=== PATIENT | male | born 1990 | race African-American/Black ===

== ENCOUNTER 2016-09-20 14:53 | Inpatient (IN) | payer OTHER ==
[~2016-09-20] VITALS: Ht 185.4 cm; Wt 143.6 kg
[2016-09-20] MEDS ORDERED: LORAZEPAM 2 MG/ML 1 ML VIAL IV STA (15:15)
[2016-09-20] MEDS ORDERED: LORAZEPAM 1 MG TAB SL STA (15:39)
[2016-09-20] MEDS ORDERED: HALOPERIDOL 5 MG TAB PO STA ×2 (15:39→18:27)
[2016-09-20 15:51] LABS: BASO % 0.3 %; BASO ABS # 0.02 K/uL (0-0.2); COMPLETE YES; EOS % 1.3 %; IG% 0.4 %; LYMPH % 31.9 %; LYMPH ABS # 2.28 K/uL (1.2-3.4); MEAN CELL VOLUME 84.9 fL (80-100); MEAN CORPUSCULAR HEMOGLOBIN 29.6 pg (25-34); MEAN CORPUSCULAR HGB CONC 34.9 g/dl (32-36); MEAN PLATELET VOLUME 10.5 fL (7.4-10.4); MONO % 6.2 %; NEUT % 59.9 %; PLATELET COUNT 250 K/uL (130-400); WHITE BLOOD COUNT 7.14 K/uL (4.8-10.8)
[2016-09-20 16:08] LABS: INR 1.1 (0.9-1.1); PARTIAL THROMBOPLASTIN RATIO 1.2; PROTHROMBIN TIME (PATIENT) 11.4 SECONDS (9.0-12.0)
[2016-09-20 16:17] LABS: ALT/SGPT 39 U/L (12-78); BLOOD UREA NITROGEN 13 mg/dl (7-18); BUN/CREATININE RATIO 10.8 (10-20); CALCIUM 9.3 mg/dl (8.5-10.1); CARBON DIOXIDE 27 mmol/L (21-32); CHLORIDE 108 mmol/L (98-107); GLUCOSE 96 mg/dl (70-99); POTASSIUM 4.1 mmol/L (3.5-5.1); SODIUM 145 mmol/L (136-145)
[2016-09-20 16:21] LABS: BENZODIAZEPINE, URINE NEG (NEG); COCAINE,URINE POS (NEG); PHENCYCLIDINE, URINE NEG (NEG)
[2016-09-20] MEDS ORDERED: LORA-741 PO (16:22)
[2016-09-20 16:28] LABS: ALKALINE PHOSPHATASE 81 U/L (45-117); AST/SGOT 41 U/L (15-37)
[2016-09-20 16:29] LABS: ACETAMINOPHEN < 2 ug/ml (10-30)
[2016-09-20] MEDS ORDERED: NICOTINE 14 MG/24 HR TDSY TD STA (16:51)
[2016-09-20 17:20] LABS: URINE APPEARANCE CLEAR (CLEAR); URINE BILIRUBIN NEG (NEG); URINE COLOR YELLOW; URINE NITRITE NEG (NEG); URINE PH 5.5 (4.5-7.5); URINE SPECIFIC GRAVITY 1.031 (1.000-1.030); UROBILINOGEN NEG (NEG)
[2016-09-20 17:27] LABS: MANUAL MICROSCOPIC REQUIRED? NO; REVIEW REQ? NO
[2016-09-20 18:25] VITALS: O2SAT 100
[2016-09-20] MEDS ORDERED: MAGNESIUM HYDROXIDE SUSP 30 ML UDC PO PRN (18:30)
[2016-09-20] MEDS ORDERED: SODIUM CHLORIDE 0.65% NA SOLN 45 ML (OCEAN) PRN (18:30)
[2016-09-20] MEDS ORDERED: hydrOXYzine HCL 25 MG TAB PO PRN (18:30)
[2016-09-20] MEDS ORDERED: ALUMINUM/MAGNESIUM SUSP 30 ML UDC PO PRN (18:30)
[2016-09-20] MEDS ORDERED: BISMUTH SUBSALICYLATE PER ML OMNICELL CHARGE PO PRN (18:30)
[2016-09-20] MEDS ORDERED: CLONIDINE HCL 0.1 MG TAB PO PRN (18:30)
[2016-09-20] MEDS ORDERED: ACETAMINOPHEN 325 MG TAB PO PRN (18:30)
--- NOTE | 2016-09-20 18:43 | EMERGENCY ROOM VISIT NOTE ---
History Report prepared by David: Mita Etienne Under the Supervision of: Dr. Viet Chase M.D. First contact with patient: 15:03 Chief Complaint: MENTAL HEALTH EVALUATION Stated Complaint: MENTAL HEALTH History of Present Illness The patient is a 26 year old male who presents to the Emergency Room with complaints of worsening manic behavior over the past several days. Per police, the patient called them today rambling scattered thoughts. They note that the patient has a diagnosis of paranoid schizophrenia per his friends but has not been on any medications. Police notes that the patient's friends note that the patient has been using cocaine recently. Police additionally notes that the patient put a ski mask on and wrapped a T-shirt around his head before he would come here. The psych major case detective notes that the patient brought two girls up to [place] from [place] for prostitution reasons. These girls state that he has not been compliant with his medications and has been using cocaine. The patient denies any headache, chest pain, or other pain today. He notes that today he is feeling emotionally hurt but does not elaborate further. The patient notes a family history of hypertension and states that he personally has had hypertension in the past. But then he stated that he was on thyroid medicine for his high blood pressure. The patient states that today he is not here for any medical reasons, but to have someone transferred to another facility because there is a doctor here that is "not in the medical field." He denies any suicidal or homicidal ideation today and additionally denies any alcohol or drug use. Source of History: patient, police, other (psych major case detective) History Limited By: AMS, poor cooperation Onset: past several days Position: other (global ) Quality: other (manic behavior) Timing: worsening Associated Symptoms: No chest pain, No headache Review of Systems See HPI for pertinent positives & negatives. A total of 10 systems reviewed and were otherwise negative. Past Medical & Surgical Medical Problems: (1) Hypertension (2) Paranoid schizophrenia Family History Hypertension Social History Smoking Status: Current Every Day Smoker Alcohol Use: none Drug Use: cocaine Current/Historical Medications Scheduled Lorazepam (Ativan), Unknown Dose PO TID Allergies Coded Allergies: No Known Allergies (Unverified , 09/20/16) Physical Exam Vital Signs Date Time Temp Pulse Resp B/P Pulse Ox O2 Delivery O2 Flow Rate FiO2 09/20/16 18:25 80 18 130/91 100 Room Air 09/20/16 16:30 111 18 139/95 97 Room Air 09/20/16 14:56 97 20 194/130 96 Room Air Physical Exam Constitutional: Vital signs reviewed. Eyes: Pupils are equal round reactive to light. Conjunctiva are noninjected. ENT: Pharynx is clear without erythema or exudate. Mucous membranes are moist. Neck supple without meningeal signs. Respiratory: Clear to auscultation bilaterally. Breath sounds are equal bilaterally. Cardiovascular: Regular rate and rhythm. No rubs or gallops. GI: Soft, nondistended and nontender. Bowel sounds are present. Musculoskeletal: No peripheral edema. No lower extremity tenderness. Integumentary: No cyanosis. Neurological: The patient is awake and alert. No focal deficits. Motor and sensation are intact throughout the extremities. Cranial nerves are grossly intact. Psychiatric: Flight of ideas. Medical Decision & Procedures Laboratory Results 09/20/16 15:34 Red Blood Count 5.30, Mean Corpuscular Volume 84.9, Mean Corpuscular Hemoglobin 29.6, Mean Corpuscular Hemoglobin Concent 34.9, Mean Platelet Volume 10.5, Neutrophils (%) (Auto) 59.9, Lymphocytes (%) (Auto) 31.9, Monocytes (%) (Auto) 6.2, Eosinophils (%) (Auto) 1.3, Basophils (%) (Auto) 0.3, Neutrophils # (Auto) 4.28, Lymphocytes # (Auto) 2.28, Monocytes # (Auto) 0.44, Eosinophils # (Auto) 0.09, Basophils # (Auto) 0.02 09/20/16 15:34 Test 09/20/16 15:34 09/20/16 15:35 White Blood Count 7.14 K/uL (4.8-10.8) Red Blood Count 5.30 M/uL (4.7-6.1) Hemoglobin 15.7 g/dL (14.0-18.0) Hematocrit 45.0 % (42-52) Mean Corpuscular Volume 84.9 fL (80-100) Mean Corpuscular Hemoglobin 29.6 pg (25-34) Mean Corpuscular Hemoglobin Concent 34.9 g/dl (32-36) Platelet Count 250 K/uL (130-400) Mean Platelet Volume 10.5 fL (7.4-10.4) Neutrophils (%) (Auto) 59.9 % Lymphocytes (%) (Auto) 31.9 % Monocytes (%) (Auto) 6.2 % Eosinophils (%) (Auto) 1.3 % Basophils (%) (Auto) 0.3 % Neutrophils # (Auto) 4.28 K/uL (1.4-6.5) Lymphocytes # (Auto) 2.28 K/uL (1.2-3.4) Monocytes # (Auto) 0.44 K/uL (0.11-0.59) Eosinophils # (Auto) 0.09 K/uL (0-0.5) Basophils # (Auto) 0.02 K/uL (0-0.2) RDW Standard Deviation 39.8 fL (36.4-46.3) RDW Coefficient of Variation 12.9 % (11.5-14.5) Immature Granulocyte % (Auto) 0.4 % Immature Granulocyte # (Auto) 0.03 K/uL (0.00-0.02) Prothrombin Time 11.4 SECONDS (9.0-12.0) Prothromb Time International Ratio 1.1 (0.9-1.1) Activated Partial Thromboplast Time 30.8 SECONDS (21.0-31.0) Partial Thromboplastin Ratio 1.2 Anion Gap 10.0 mmol/L (3-11) Est Creatinine Clear Calc Drug Dose 137.8 ml/min Estimated GFR () 95.5 Estimated GFR (Non- 82.4 BUN/Creatinine Ratio 10.8 (10-20) Calcium Level 9.3 mg/dl (8.5-10.1) Total Bilirubin 0.5 mg/dl (0.2-1) Direct Bilirubin 0.1 mg/dl (0-0.2) Aspartate Amino Transf (AST/SGOT) 41 U/L (15-37) Alanine Aminotransferase (ALT/SGPT) 39 U/L (12-78) Alkaline Phosphatase 81 U/L (45-117) Troponin I < 0.015 ng/ml (0-0.045) Total Protein 7.5 gm/dl (6.4-8.2) Albumin 4.1 gm/dl (3.4-5.0) Thyroid Stimulating Hormone (TSH) 2.890 uIu/ml (0.300-4.500) Free Thyroxine 1.03 ng/dl (0.80-1.60) Salicylates Level < 1.7 mg/dl (2.8-20) Acetaminophen Level < 2 ug/ml (10-30) Ethyl Alcohol mg/dL < 3.0 mg/dl (0-3) Urine Color YELLOW Urine Appearance CLEAR (CLEAR) Urine pH 5.5 (4.5-7.5) Urine Specific [place] 1.031 (1.000-1.030) Urine Protein NEG (NEG) Urine Glucose (UA) NEG (NEG) Urine Ketones TRACE (NEG) Urine Occult Blood NEG (NEG) Urine Nitrite NEG (NEG) Urine Bilirubin NEG (NEG) Urine Urobilinogen NEG (NEG) Urine Leukocyte Esterase NEG (NEG) Urine Opiates Screen NEG (NEG) Urine Methadone, Qualitative NEG (NEG) Urine Barbiturates NEG (NEG) Urine Phencyclidine (PCP) Level NEG (NEG) Ur Amphetamine/Methamphetamine NEG (NEG) MDMA (Ecstasy) Screen NEG (NEG) Urine Benzodiazepines Screen NEG (NEG) Urine Cocaine Metabolite POS (NEG) Urine Marijuana (THC) POS (NEG) Laboratory results as reviewed by me. Medications Administered Medications (Trade) Dose Ordered Sig/Cleo Route Start Time Stop Time Status Last Admin Dose Admin Lorazepam (Ativan Tab) 2 mg NOW STAT SL 09/20/16 15:39 09/20/16 15:40 DC 09/20/16 16:09 2 MG Haloperidol (Haldol Tab) 5 mg NOW STAT PO 09/20/16 15:39 09/20/16 15:41 DC 09/20/16 16:10 5 MG Nicotine (Nicoderm Cq 14MG Patch) 1 patch NOW STAT TD 09/20/16 16:51 09/20/16 16:52 DC 09/20/16 17:24 1 PATCH ECG Indication: other (hypertension) Rate (beats per minute): 78 Rhythm: normal sinus Findings: no ectopy, other (incomplete right bundle branch block, early repolarization) Comparison ECG Date: no prior available ED Course 1505: The patient was evaluated in room A8. A complete history and physical exam was performed. 1521: Per nursing staff, the patient is uncooperative now. 1539: Ordered Haldol Tab 5 mg PO, Ativan Tab 2 mg SL. I reevaluated the patient and he agreed to blood work, but refuses the IV. 1626: I discussed the patient with the psych major case detective and she showed me the 302 petition that was brought forth by the patients friends. Patient has been using hallucinogenics as well. The patient was not going to pay for their hotel room today so the hotel staff was going to call police on them today, so he figured if he would call police first he would win. It has been decided that the 302 petition would be signed. 165: Ordered Nicotine 1 patch TD. 1732: I discussed the patient with [facility]. He states that the patient does not wish to have any assessment at this time and is denying everything. I signed the 302 petition at this time. 182: I discussed the patient's case with [facility]. Dr. Bajwa, Psychiatry has accepted the patient for further treatment. She would like another fiver mg of Haldol ordered and two mg of Ativan ordered despite him being calm here. Ordered Haldol Tab 5 mg PO. Medical Decision This is a 26-year-old male brought in by police for mental health evaluation. I did perform a limited focused review of portions of the patient's old chart on the electronic medical record. The patient has had no prior visits. I did evaluate the patient as noted above. This history is severely limited due to his mental status. I did review the 302 that was filled out by his girlfriend. She states that he has been a danger to other people and threatening her as well as hotel staff. She describes significant paranoia and delusions and states that he is a paranoid schizophrenic who has not been taking his medications. She also states that he has been using cocaine. She believes last time he used it was yesterday. The patient refused an IV. He was given Ativan sublingually and Haldol orally. 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 I did order and personally review the patient's 12- lead EKG as described above. I did order and review the patient's blood work as noted in the electronic medical record. The patient's blood pressure came down significantly. I did medically clear the patient. He was evaluated by [facility] who issued a warrant for the 302. I did sign the 302. The patient was given a nicotine patch. The patient was accepted by [facility] [address] Ramirez requested additional medications. I did give him Haldol 5 mg. Impression Primary Impression: Paranoid schizophrenia Additional Impressions: Noncompliance with medications, Drug abuse Scribe Attestation The scribe's documentation has been prepared under my direct and personally reviewed by me in its entirety. I confirm that the note above accurately reflects all work, treatment, procedures, and medical decision making performed by me. Departure Information Dispostion Mental Health Acute Care Referrals No Doctor, Assigned (PCP)
[2016-09-20 19:30] VITALS: BP 130/91; PULSE 82; TEMP 37.1; BMI 41.8
[2016-09-20] MEDS ORDERED: RISPERIDONE ODT 1MG PO SCH (21:00)
[2016-09-21 06:58] VITALS: BP 116/71; PULSE 74; TEMP 36.3
[2016-09-21] MEDS: NICOTINE 14 MG/24 HR TDSY TD SCH (09:00)
[2016-09-21] MEDS: NICOTINE POLACRILEX 2 MG GUM MT PRN ×2 (09:28→18:34)
--- NOTE | 2016-09-21 10:47 | Psychiatric History & Physical ---
History Identifying Data Joseluis Sargent is a 26-year-old male who currently lives with his girlfriend in a hotel in [place]. Joseluis Sargent was admitted on a 302 involuntary commitment. Patient is admitted from ED, petitioner was girlfriend (patient aware). Chief Complaint "I think she's getting back at me". History of Present Illness Joseluis relates moving to the area about 2 months ago. 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 He has been using cocaine regularly and has not been taking his prescribed Abilify for some time. He relates he called the police as he felt something wasn't right at the [facility]. 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 Today, after receiving Haldol in ED last pm and Risperdal M tab at hs he maintains that he is feeling more organized and it is his friend that works for the [employer]. He redirects the conversation away from the topic of his grandiose delusions. He admits to also using Percocet "30"s. Unclear if he is referring to the oxycodone dose, later says takes 2 pills a day and that has required Suboxone in the past. He denies recent use of hallucinogenics but when reviewed that his girlfriend reported that he took DMT (N,N-Dimethyltryptamine) he states that he did take it in past and gave him premonitions. He does not currently believe that he can see or predict the future. He relates that his girlfriend may have misrepresented his symptoms as he recently had her committed to the [employer] and this is now "pay back". He admits that cocaine can cause him to be more restless due to "araujo of dopamine" with high blood pressure which was noted in ED last pm. Past Psychiatric History Current OP Treatment: no current treatment Prior OP Treatment: psychiatrist (doesn't know name, outpatient in [facility] with diagnosis of schizophrenia) Prior Psych Hospitalizations: other (has been committed multiple times to [facility] in [facility]) (1) past psych meds patient doesn't know full list--didn't really feel Abilify helpful and became noncompliant, doesn't like Haldol or Risperdal longer term as gynecomastia at baseline. States the best he did was on flulanzapine by injection which is likely Prolixin Last Edited By: Jigna Bajwa on Sep 21, 2016 10:33 denies prior suicide attempts denies hx of DTs/alcohol abuse but that he's been "dope sick" before, some type of rehab program in [facility] as well as some form of mobile psych team Past Medical/Surgical History History of Obesity: Yes History of HTN: Yes History of Diabetes: No History of Heart Disease: No History of Dyslipidemia: No History of Concussion/Seizure: No Problem List: (1) Noncompliance with medications (2) Hypertension Allergies Allergies: Coded Allergies: No Known Allergies (Unverified , 09/20/16) Home Medications Scheduled Lorazepam (Ativan), Unknown Dose PO TID Family History Hypertension History of Obesity: Yes History of HTN: Yes History of Diabetes: No History of Heart Disease: Yes History of Dyslipidemia: No father schizophrenia mother ?bipolar Alcohol Use Alcohol Use In Past 12 Months: Yes will have up to 3-4 mixed drinks (shot equivalents) on holiday, denies regular ETOH use Substance History Substance Use Past 12 Months: Hx of Inhalent Use: No Hx of Organic Substance Use: Yes (MJ--1 blunt few times a month) Hx of Illegal/Street Drug Use: Yes (snort cocaine, unknown amount, almost daily leading up to admit) Hx of Over the Counter Med Use: No Hx of Prescription Med Use: Yes (perocets obtained on street, 2 pills a day) Personal History Born in: [facility] Parental Status: Work History: nonspecific, won't answer education Relationship History: never (has an exgirlfriend that he was with for 7 years, currently girlfriend 2 years) Children: denied Spiritual Affiliation: denied Legal History: 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 Examination Physical Examination A physical exam was performed in the ER by Dr. Chase prior to admission to the unit. I accept that physical as correct/medical clearance for the inpatient physical exam. Vital Signs Vital Signs Past 12 Hours Date Time Temp Pulse Resp B/P Pulse Ox O2 Delivery O2 Flow Rate FiO2 09/21/16 06:58 36.3 74 16 116/71 Laboratory Results Last 24 Hours Test 09/20/16 15:34 09/20/16 15:35 09/20/16 17:15 White Blood Count 7.14 K/uL Red Blood Count 5.30 M/uL Hemoglobin 15.7 g/dL Hematocrit 45.0 % Mean Corpuscular Volume 84.9 fL Mean Corpuscular Hemoglobin 29.6 pg Mean Corpuscular Hemoglobin Concent 34.9 g/dl Platelet Count 250 K/uL Mean Platelet Volume 10.5 fL Neutrophils (%) (Auto) 59.9 % Lymphocytes (%) (Auto) 31.9 % Monocytes (%) (Auto) 6.2 % Eosinophils (%) (Auto) 1.3 % Basophils (%) (Auto) 0.3 % Neutrophils # (Auto) 4.28 K/uL Lymphocytes # (Auto) 2.28 K/uL Monocytes # (Auto) 0.44 K/uL Eosinophils # (Auto) 0.09 K/uL Basophils # (Auto) 0.02 K/uL RDW Standard Deviation 39.8 fL RDW Coefficient of Variation 12.9 % Immature Granulocyte % (Auto) 0.4 % Immature Granulocyte # (Auto) 0.03 K/uL Prothrombin Time 11.4 SECONDS Prothromb Time International Ratio 1.1 Activated Partial Thromboplast Time 30.8 SECONDS Partial Thromboplastin Ratio 1.2 Sodium Level 145 mmol/L Potassium Level 4.1 mmol/L Chloride Level 108 mmol/L Carbon Dioxide Level 27 mmol/L Anion Gap 10.0 mmol/L Blood Urea Nitrogen 13 mg/dl Creatinine 1.20 mg/dl Est Creatinine Clear Calc Drug Dose 137.8 ml/min Estimated GFR () 95.5 Estimated GFR (Non- 82.4 BUN/Creatinine Ratio 10.8 Random Glucose 96 mg/dl Calcium Level 9.3 mg/dl Total Bilirubin 0.5 mg/dl Direct Bilirubin 0.1 mg/dl Aspartate Amino Transf (AST/SGOT) 41 U/L Alanine Aminotransferase (ALT/SGPT) 39 U/L Alkaline Phosphatase 81 U/L Troponin I < 0.015 ng/ml Total Protein 7.5 gm/dl Albumin 4.1 gm/dl Thyroid Stimulating Hormone (TSH) 2.890 uIu/ml Free Thyroxine 1.03 ng/dl Salicylates Level < 1.7 mg/dl Acetaminophen Level < 2 ug/ml Ethyl Alcohol mg/dL < 3.0 mg/dl Urine Color YELLOW Urine Appearance CLEAR Urine pH 5.5 Urine Specific [place] 1.031 Urine Protein NEG Urine Glucose (UA) NEG Urine Ketones TRACE Urine Occult Blood NEG Urine Nitrite NEG Urine Bilirubin NEG Urine Urobilinogen NEG Urine Leukocyte Esterase NEG Urine Opiates Screen NEG Urine Methadone, Qualitative NEG Urine Barbiturates NEG Urine Phencyclidine (PCP) Level NEG Ur Amphetamine/Methamphetamine NEG MDMA (Ecstasy) Screen NEG Urine Benzodiazepines Screen NEG Urine Cocaine Metabolite POS Urine Marijuana (THC) POS Mental Examination During interview pt is: alert and oriented, cooperative (but sketchy on details ) Appearance: appropriately groomed Eye contact is: fair Motor behavior is: no abnormal motor movements Speech: normal in rate, rhythm & volume Affect: blunted Mood is: other ("all right") Thought process: tangential Thought content: paranoid, delusions (grandiosity) Suicidal thought are: denied Homicidal thoughts are: denied Hallucinations: denies auditory, denies visual Cognition: language grossly intact Intelligence estimated to be: average Insight: poor Judgement: poor Impression / Recommendations Impression 26 yo male with history of schizophrenia and significant substance abuse, admit on 302 for disorganized and delusional behavior with active cocaine and prescription opiate abuse. The patient is admitted to [facility] ([facility] mental [facility] unit) on q 15 min checks (behavioral with suicide precautions) for safety. The patient will participate in group, recreational and milieu therapies and will be offered additional individual and family sessions as clinically appropriate. Although there is no reported history of violence to self or others in the past 6 months, he remains delusional and should remain on MNPR for further monitoring. He is cooperative but not forthcoming and is rather physically intimidating should he begin to be more restless due to withdrawal. 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 He is requesting to resume fluphenazine as less metabolic concerns than atypicals. Need to confirm what options would be covered on his insurance and review past records. Fluphenazine not ideal agent intermodal truck driver for this patient given age and risks of TD. (2) Substance use disorder no current evidence of withdrawal will monitor, has prn clonidine patient not currently amenable to inpatient rehab, desires to explore IOP. CPT Code Initial Hospital Care: [id number]
[2016-09-21] MEDS: FLUPHENAZINE HCL 1 MG PO SCH (21:12)
[2016-09-21] MEDS: hydrOXYzine HCL 25 MG TAB PO PRN (21:15)
[2016-09-22 07:00] VITALS: BP_SYST 105; BP_SYST 121; BP_DIAS 71; BP_DIAS 84; PULSE 76; PULSE 90; TEMP 36.7
[2016-09-22 07:12] LABS: CHOLESTEROL/HDL RATIO 2.6
[2016-09-22] MEDS: FLUPHENAZINE HCL 1 MG PO SCH ×2 (08:42→22:39)
[2016-09-22] MEDS: NICOTINE 14 MG/24 HR TDSY TD SCH (08:42)
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
[2016-09-22] MEDS: LORAZEPAM 2 MG TAB PO PRN (18:48)
[2016-09-22] MEDS: HALOPERIDOL 5 MG TAB PO PRN (18:48)
[2016-09-22] MEDS: BENZTROPINE MESYLATE 0.5 MG TAB PO PRN (18:48)
[2016-09-23 06:52] VITALS: BP_SYST 109; BP_SYST 110; BP_DIAS 71; PULSE 54; PULSE 64; TEMP 36.5
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
[2016-09-23] MEDS: FLUPHENAZINE HCL 1 MG PO SCH ×2 (08:47→21:37)
[2016-09-23] MEDS: NICOTINE 14 MG/24 HR TDSY TD SCH (08:47)
[2016-09-23] MEDS: LORAZEPAM 2 MG TAB PO PRN (20:25)
[2016-09-23] MEDS: HALOPERIDOL 5 MG TAB PO PRN (20:25)
[2016-09-23] MEDS: BENZTROPINE MESYLATE 0.5 MG TAB PO PRN (20:26)
[2016-09-24 06:11] VITALS: BP 127/88; PULSE 76; TEMP 36.6
[2016-09-24] MEDS: NICOTINE 14 MG/24 HR TDSY TD SCH (08:40)
[2016-09-24] MEDS: FLUPHENAZINE HCL 1 MG PO SCH ×2 (08:40→21:16)
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
[2016-09-25 06:37] VITALS: BP_SYST 121; BP_SYST 129; BP_DIAS 88; BP_DIAS 91; PULSE 80; PULSE 93; TEMP 36.4
[2016-09-25] MEDS: HALOPERIDOL 5 MG TAB PO PRN ×2 (06:57→21:21)
[2016-09-25] MEDS: BENZTROPINE MESYLATE 0.5 MG TAB PO PRN ×2 (06:57→21:21)
[2016-09-25] MEDS: LORAZEPAM 2 MG TAB PO PRN ×2 (06:58→21:21)
[2016-09-25] MEDS: FLUPHENAZINE HCL 1 MG PO SCH ×2 (08:42→21:19)
[2016-09-25] MEDS: NICOTINE 14 MG/24 HR TDSY TD SCH (08:44)
[2016-09-25] MEDS: NICOTINE POLACRILEX 2 MG GUM MT PRN (09:06)
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
[2016-09-25 13:41] LABS: COCAINE, URINE 4600 NG/ML (CUTOFF=100)
[2016-09-25] MEDS: hydrOXYzine HCL 25 MG TAB PO PRN (21:21)
[2016-09-26 06:45] VITALS: BP_SYST 125; BP_SYST 132; BP_DIAS 77; BP_DIAS 85; PULSE 104; PULSE 79; TEMP 36.5
[2016-09-26] MEDS: NICOTINE 14 MG/24 HR TDSY TD SCH (08:19)
[2016-09-26] MEDS: FLUPHENAZINE HCL 1 MG PO SCH (08:28)
[2016-09-26] MEDS ORDERED: QUETIAPINE FUMARATE 100 MG TAB PO ONE (10:54)
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
[2016-09-26] MEDS: BENZTROPINE MESYLATE 0.5 MG TAB PO PRN (15:43)
[2016-09-26] MEDS: LORAZEPAM 2 MG TAB PO PRN (15:43)
[2016-09-26] MEDS: HALOPERIDOL 5 MG TAB PO PRN (15:43)
[2016-09-26] MEDS ORDERED: NURSING VERBAL MED ORDER ONE (16:00)
[2016-09-26] MEDS ORDERED: LORAZEPAM 2 MG/ML 1 ML VIAL ONE (16:03)
[2016-09-26] MEDS ORDERED: HALOPERIDOL LACTATE 5 MG/ML 1 ML VIAL ONE (16:03)
[2016-09-26] MEDS ORDERED: LORAZEPAM 2 MG/ML 1 ML VIAL IM PRN (16:30)
[2016-09-26] MEDS ORDERED: HALOPERIDOL LACTATE 5 MG/ML 1 ML VIAL IM PRN (16:30)
[2016-09-26] MEDS: NICOTINE POLACRILEX 2 MG GUM MT PRN (21:09)
[2016-09-26 21:38] VITALS: BP 113/73; PULSE 84
[2016-09-26] MEDS ORDERED: QUETIAPINE FUMARATE 200 MG TAB PO SCH (22:00)
[2016-09-27 06:56] VITALS: BP_SYST 112; BP_SYST 125; BP_DIAS 80; BP_DIAS 84; PULSE 75; PULSE 89; TEMP 36.4
[2016-09-27] MEDS: NICOTINE POLACRILEX 2 MG GUM MT PRN ×2 (08:52→16:04)
[2016-09-27] MEDS: QUETIAPINE FUMARATE 100 MG TAB PO SCH (08:54)
[2016-09-27] MEDS: NICOTINE 14 MG/24 HR TDSY TD SCH (08:55)
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
[2016-09-27] MEDS ORDERED: QUETIAPINE FUMARATE 300 MG TAB PO SCH (22:00)
[2016-09-28 06:55] VITALS: BP_SYST 132; BP_SYST 138; BP_DIAS 81; BP_DIAS 89; PULSE 92; PULSE 96; TEMP 36.6
[2016-09-28] MEDS: HALOPERIDOL 5 MG TAB PO PRN ×2 (08:17→17:48)
[2016-09-28] MEDS: QUETIAPINE FUMARATE 100 MG TAB PO SCH (08:18)
[2016-09-28] MEDS: BENZTROPINE MESYLATE 0.5 MG TAB PO PRN ×2 (08:18→17:48)
[2016-09-28] MEDS: NICOTINE 14 MG/24 HR TDSY TD SCH (08:22)
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
[2016-09-28] MEDS: LORAZEPAM 2 MG TAB PO PRN ×2 (10:41→17:48)
[2016-09-28 15:35] LABS: SYNTHETIC CANNABINOIDS QL URIN NEGATIVE (Negative)
[2016-09-28] MEDS ORDERED: QUETIAPINE FUMARATE 100 MG TAB PO ONE (16:03)
[2016-09-28] MEDS: QUETIAPINE FUMARATE 200 MG TAB PO SCH (21:41)
[2016-09-29 05:36] VITALS: Ht 185.4 cm; Wt 143.6 kg
[2016-09-29 07:02] VITALS: BP_SYST 126; BP_SYST 128; BP_DIAS 88; PULSE 106; PULSE 91; TEMP 36.6
[2016-09-29] MEDS: NICOTINE POLACRILEX 2 MG GUM MT PRN (07:19)
[2016-09-29] MEDS: NICOTINE 14 MG/24 HR TDSY TD SCH (08:23)
[2016-09-29] MEDS ORDERED: HALOPERIDOL 5 MG TAB PO ONE (08:52)
[2016-09-29] MEDS: QUETIAPINE FUMARATE 200 MG TAB PO SCH ×2 (09:36→21:51)
[2016-09-29] MEDS: BENZTROPINE MESYLATE 0.5 MG TAB PO PRN ×2 (09:40→21:54)
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
[2016-09-29] MEDS: HALOPERIDOL 5 MG TAB PO SCH (21:50)
[2016-09-30 06:52] VITALS: BP 125/81; PULSE 87; TEMP 36.4
[2016-09-30] MEDS: QUETIAPINE FUMARATE 200 MG TAB PO SCH ×2 (08:45→21:09)
[2016-09-30] MEDS: HALOPERIDOL 5 MG TAB PO SCH ×2 (08:46→21:09)
[2016-09-30] MEDS: NICOTINE 14 MG/24 HR TDSY TD SCH (08:50)
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
[2016-09-30] MEDS ORDERED: SRQ200 PO ×2 (11:37)
[2016-09-30] MEDS ORDERED: CGN5X PO (11:37)
[2016-09-30] MEDS ORDERED: HALO10TA17 PO (11:37)
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
[2016-09-30] MEDS: BENZTROPINE MESYLATE 0.5 MG TAB PO PRN (21:15)
[2016-10-01 06:52] VITALS: BP_SYST 146; BP_SYST 165; BP_DIAS 105; BP_DIAS 85; PULSE 102; PULSE 82; TEMP 36.9
[2016-10-01] MEDS: NICOTINE 14 MG/24 HR TDSY TD SCH (08:35)
[2016-10-01] MEDS: BENZTROPINE MESYLATE 0.5 MG TAB PO PRN (08:57)
[2016-10-01] MEDS: HALOPERIDOL 5 MG TAB PO SCH (08:57)
[2016-10-01] MEDS: QUETIAPINE FUMARATE 200 MG TAB PO SCH (08:57)
== END 2016-10-01 09:30 | disposition home or self-care (01) | DRG 885 ==
LOC: ENRESERVDT → ENRESERVTM → C.EDB 14:57 → C.MHU 18:26
PROVIDERS: ADMIT Psychiatry & Neurology Child & Adolescent Psychiatry; ATTEND Psychiatry & Neurology Child & Adolescent Psychiatry
DX: F20.0 Paranoid schizophrenia (principal); Z68.41 Body mass index [BMI] 40.0-44.9, adult; E66.9 Obesity, unspecified; I10 Essential (primary) hypertension; F14.10 Cocaine abuse, uncomplicated; F12.10 Cannabis abuse, uncomplicated; F17.210 Nicotine dependence, cigarettes, uncomplicated; Z81.8 Family history of other mental and behavioral disorders; Z91.14 Patient's other noncompliance with medication regimen

== ENCOUNTER 2016-11-07 20:37 | Emergency (ER) | payer OTHER ==
[~2016-11-07] VITALS: Ht 188 cm; Wt 141.7 kg
[~2016-11-07 20:37] MED LIST: CGN5X PO; HALO10TA17 PO; SRQ200 PO
[2016-11-07 20:41] VITALS: TEMP 36.8; Ht 188 cm; Wt 141.7 kg
[2016-11-07] MEDS ORDERED: LORAZEPAM 1 MG TAB SL STA (20:57)
--- NOTE | 2016-11-07 21:13 | EMERGENCY ROOM VISIT NOTE ---
History Report prepared by David: Kip Jean Under the Supervision of: Dr. Napoleon Rodriguez D.O. First contact with patient: 20:44 Chief Complaint: MENTAL HEALTH EVALUATION Stated Complaint: DEPRESSION History of Present Illness The patient is a 26 year old male who presents to the Emergency Room with complaints of worsening depression beginning several days prior to arrival. He currently rates his discomfort as an 8/10 in severity. The patient associates decreased sleep over the past three days with today's symptoms. He states his girlfriend was recently arrested for possession of drugs. The patient notes he has a history of depression, personality disorder, and schizophrenia. He states his relationship and friendship issues have been taking a toll on him. The patient notes he had suicidal ideations three days ago without a plan. He states he recently smoked DMT and since has been having dreams that come true in reality. The patient notes he was admitted to the hospital a few months ago for personality disorder. He states he had some mild medication changes, while he was admitted. The patient notes he would like to be admitted to the hospital , because he is feeling bad again. He also complains of bilateral knee pain and associates swelling in the knees. The patient denies IV drug history. He denies positive tests for hepatitis or HIV. 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 Review of Systems See HPI for pertinent positives & negatives. A total of 10 systems reviewed and were otherwise negative. Past Medical & Surgical Medical Problems: (1) Hypertension (2) Noncompliance with medications (3) Obesity (4) Paranoid schizophrenia (5) past psych meds (6) Past Psych Meds (7) Substance use disorder Family History Hypertension Social History Smoking Status: Current Every Day Smoker Alcohol Use: none Drug Use: cocaine, marijuana Current/Historical Medications Scheduled Quetiapine Fumarate (Seroquel), 200 MG PO QAM Quetiapine Fumarate (Quetiapine Fumarate), 600 MG PO HS Miscellaneous Medications [Unknown Bp Med], Unknown Dose [Unknown Knee Med], Unknown Dose Allergies Coded Allergies: No Known Allergies (Unverified , 11/07/16) Physical Exam Vital Signs Date Time Temp Pulse Resp B/P Pulse Ox O2 Delivery O2 Flow Rate FiO2 11/07/16 22:51 70 18 141/99 95 11/07/16 20:41 36.8 78 18 150/113 94 Room Air Physical Exam GENERAL: Patient is awake, alert, and somehwat anxious appearing but comfortable. Appears somewhat guarded. EYES: The conjunctivae are clear. The pupils are round and reactive. EARS, NOSE, MOUTH AND THROAT: The nose is without any evidence of any deformity. Mucous membranes are moist tongue is midline NECK: The neck is nontender and supple. RESPIRATORY: Normal respiratory effort is noted there is no evidence of wheezing rhonchi or rales CARDIOVASCULAR: Regular rate and rhythm noted there no murmurs rubs or gallops normal S1 normal S2 GASTROINTESTINAL: The abdomen is soft. Bowel sounds are present in all quadrants. Abdomen is nontender MUSCULOSKELETAL/EXTREMITIES: There is no evidence of gross deformity full range of motion is noted in the hips and shoulders SKIN: There is no obvious evidence of any rash. There are no petechiae, pallor or cyanosis noted. NEUROLOGIC: Patient is awake alert and oriented x3 strength is symmetric patellar reflexes are 2+ bilaterally PSYCH: Patient's affect is flat. He is somewhat guarded appearing. Currently admits to passive suicidal ideation but no specific plan. Medical Decision & Procedures Laboratory Results 11/07/16 21:20 Red Blood Count 5.40, Mean Corpuscular Volume 85.7, Mean Corpuscular Hemoglobin 29.8, Mean Corpuscular Hemoglobin Concent 34.8, Mean Platelet Volume 10.9, Neutrophils (%) (Auto) 61.0, Lymphocytes (%) (Auto) 28.0, Monocytes (%) (Auto) 9.3, Eosinophils (%) (Auto) 1.2, Basophils (%) (Auto) 0.2, Neutrophils # (Auto) 5.54, Lymphocytes # (Auto) 2.55, Monocytes # (Auto) 0.85, Eosinophils # (Auto) 0.11, Basophils # (Auto) 0.02 11/07/16 21:20 Test 11/07/16 20:52 11/07/16 21:20 Urine Color YELLOW Urine Appearance CLEAR (CLEAR) Urine pH 5.0 (4.5-7.5) Urine Specific Peak 1.019 (1.000-1.030) Urine Protein NEG (NEG) Urine Glucose (UA) NEG (NEG) Urine Ketones 1+ (NEG) Urine Occult Blood NEG (NEG) Urine Nitrite NEG (NEG) Urine Bilirubin NEG (NEG) Urine Urobilinogen NEG (NEG) Urine Leukocyte Esterase NEG (NEG) Urine Opiates Screen NEG (NEG) Urine Methadone, Qualitative NEG (NEG) Urine Barbiturates NEG (NEG) Urine Phencyclidine (PCP) Level NEG (NEG) Ur Amphetamine/Methamphetamine NEG (NEG) MDMA (Ecstasy) Screen NEG (NEG) Urine Benzodiazepines Screen NEG (NEG) Urine Cocaine Metabolite NEG (NEG) Urine Marijuana (THC) NEG (NEG) White Blood Count 9.10 K/uL (4.8-10.8) Red Blood Count 5.40 M/uL (4.7-6.1) Hemoglobin 16.1 g/dL (14.0-18.0) Hematocrit 46.3 % (42-52) Mean Corpuscular Volume 85.7 fL (80-100) Mean Corpuscular Hemoglobin 29.8 pg (25-34) Mean Corpuscular Hemoglobin Concent 34.8 g/dl (32-36) Platelet Count 260 K/uL (130-400) Mean Platelet Volume 10.9 fL (7.4-10.4) Neutrophils (%) (Auto) 61.0 % Lymphocytes (%) (Auto) 28.0 % Monocytes (%) (Auto) 9.3 % Eosinophils (%) (Auto) 1.2 % Basophils (%) (Auto) 0.2 % Neutrophils # (Auto) 5.54 K/uL (1.4-6.5) Lymphocytes # (Auto) 2.55 K/uL (1.2-3.4) Monocytes # (Auto) 0.85 K/uL (0.11-0.59) Eosinophils # (Auto) 0.11 K/uL (0-0.5) Basophils # (Auto) 0.02 K/uL (0-0.2) RDW Standard Deviation 41.5 fL (36.4-46.3) RDW Coefficient of Variation 13.3 % (11.5-14.5) Immature Granulocyte % (Auto) 0.3 % Immature Granulocyte # (Auto) 0.03 K/uL (0.00-0.02) Anion Gap 10.0 mmol/L (3-11) Est Creatinine Clear Calc Drug Dose 151.3 ml/min Estimated GFR () 106.1 Estimated GFR (Non- 91.5 BUN/Creatinine Ratio 12.6 (10-20) Calcium Level 9.2 mg/dl (8.5-10.1) Total Bilirubin 0.6 mg/dl (0.2-1) Direct Bilirubin 0.2 mg/dl (0-0.2) Aspartate Amino Transf (AST/SGOT) 21 U/L (15-37) Alanine Aminotransferase (ALT/SGPT) 19 U/L (12-78) Alkaline Phosphatase 103 U/L (45-117) Total Protein 8.0 gm/dl (6.4-8.2) Albumin 4.1 gm/dl (3.4-5.0) Globulin 3.9 gm/dl (2.5-4.0) Albumin/Globulin Ratio 1.1 (0.9-2) Thyroid Stimulating Hormone (TSH) 3.440 uIu/ml (0.300-4.500) Ethyl Alcohol mg/dL < 3.0 mg/dl (0-3) Laboratory results per my review. Medications Administered Medications (Trade) Dose Ordered Sig/Cleo Route Start Time Stop Time Status Last Admin Dose Admin Lorazepam (Ativan Tab) 1 mg NOW STAT SL 11/07/16 20:57 11/07/16 20:58 DC 11/07/16 21:24 1 MG ED Course 2050: The patient was evaluated in room A7. A complete history and physical examination were performed. 2056: Ordered Ativan Tab 1 mg SL. 2204: Upon reevaluation, the patient is doing well. I discussed the results and treatment plan with him. He verbalized agreement of the treatment plan. The patient was discharged home. Medical Decision Etiologies such as mood disorder, infection, hypoglycemia, electrolyte abnormalities, cardiac sources, intracerebral event, toxicologic, neurologic, as well as others were entertained. Nursing notes reviewed. Patient's previous electronic medical records reviewed. The patient is a 26-year-old male who presented to the emergency department for an evaluation of shift. The patient has significant anxiety. He was recently involved a significant other who was recently arrested for drug possession. The patient has also problems with his roommate. This reason and vertigo this evening. He presents to the emergency department with anxiety and vague passive suicidal ideation. He was medically cleared in the emergency department. He was then evaluated by the emergency Department mental health behavioral health case manager. He did not meet criteria for involuntary admission at this time. The patient does have an outpatient therapist. He states that he's been compliant with his medications. He was encouraged to continue all medications as prescribed. He was also encouraged to follow-up with his therapist as soon as possible. He was also encouraged to call crisis or return to emergency department immediately if symptoms change worsen or the need arises. Impression Primary Impression: Anxiety Additional Impression: Depression Scribe Attestation The scribe's documentation has been prepared under my direction and personally reviewed by me in its entirety. I confirm that the note above accurately reflects all work, treatment, procedures, and medical decision making performed by me. Departure Information Dispostion Home / Self-Care Referrals No Doctor, Assigned (PCP) Forms HOME CARE DOCUMENTATION FORM, IMPORTANT VISIT INFORMATION Patient Instructions Depression Counseling, My [facility] Additional Instructions Continue all medications as prescribed. Follow-up with your therapist as soon as possible. Call crisis or return to the emergency department immediately if symptoms change worsen or the need arises. Problem Qualifiers
[2016-11-07 21:32] LABS: BASO % 0.2 %; BASO ABS # 0.02 K/uL (0-0.2); COMPLETE YES; EOS % 1.2 %; HEMATOCRIT 46.3 % (42-52); IG% 0.3 %; LYMPH ABS # 2.55 K/uL (1.2-3.4); MEAN CELL VOLUME 85.7 fL (80-100); MEAN CORPUSCULAR HEMOGLOBIN 29.8 pg (25-34); MEAN CORPUSCULAR HGB CONC 34.8 g/dl (32-36); MEAN PLATELET VOLUME 10.9 fL (7.4-10.4); MONO % 9.3 %; PLATELET COUNT 260 K/uL (130-400)
[2016-11-07 21:48] LABS: URINE APPEARANCE CLEAR (CLEAR); URINE BILIRUBIN NEG (NEG); URINE COLOR YELLOW; URINE NITRITE NEG (NEG); URINE SPECIFIC GRAVITY 1.019 (1.000-1.030); UROBILINOGEN NEG (NEG)
[2016-11-07 21:49] LABS: MANUAL MICROSCOPIC REQUIRED? NO; REVIEW REQ? NO
[2016-11-07 21:58] LABS: BUN/CREATININE RATIO 12.6 (10-20); CALCIUM 9.2 mg/dl (8.5-10.1); CREATININE 1.1 mg/dl (0.60-1.40); POTASSIUM 3.8 mmol/L (3.5-5.1)
[2016-11-07 22:08] LABS: ALB/GLOB RATIO 1.1 (0.9-2); THYROID STIMULATING HORMONE 3.44 uIu/ml (0.300-4.500)
[2016-11-07 22:19] LABS: BENZODIAZEPINE, URINE NEG (NEG); COCAINE,URINE NEG (NEG); PHENCYCLIDINE, URINE NEG (NEG)
[2016-11-07] MEDS ORDERED: UNKNOWN BP MED (22:23)
[2016-11-07] MEDS ORDERED: [UNRECOGNIZED DRUG - REMARK] (22:23)
[2016-11-07] MEDS ORDERED: SRQ300 PO (22:24)
[2016-11-07 22:51] VITALS: BP 141/99; PULSE 70; O2SAT 95
== END 2016-11-07 22:52 | disposition home or self-care (01) ==
LOC: C.EDB 20:37 → C.EDA 22:52
DX: F41.9 Anxiety disorder, unspecified (principal); F32.9 Major depressive disorder, single episode, unspecified; F17.200 Nicotine dependence, unspecified, uncomplicated; I10 Essential (primary) hypertension; F20.0 Paranoid schizophrenia